=== PATIENT | female | born 1955 | race Caucasian/White ===

== ENCOUNTER 2020-10-07 08:43 | Inpatient (IN) | payer MEDICARE, MEDICAID ==
[~2020-10-07] VITALS: Ht 170.2 cm; Wt 93.0 kg
[2020-10-07] VITALS (40 sets, daily range): BP systolic 90–125; BP diastolic 36–55
[~2020-10-07 08:43] MED LIST: LEVOXYL; RISP3TAB44
[2020-10-07] MEDS ORDERED: DEXTROSE (50%) 50ML SYRG IV PRN (09:00)
[2020-10-07] MEDS ORDERED: INSULIN LANTUS (GLARGINE) 1 /0.01ml (100units/ml) SC ONE (09:00)
[2020-10-07] MEDS ORDERED: InsuLIN R (HUMAN) 100 UNITS in SODIUM CHL 0.9% 99 ML IV SCH ×3 (09:00→16:45)
[2020-10-07] MEDS: ACCU-CHEK COMFORT CURVE STRIP VI SCH ×10 (09:29→22:47)
[2020-10-07] MEDS: SODIUM CHLORIDE 0.9% 1,000 ML IV SCH ×2 (09:30→11:47)
[2020-10-07 09:51] LABS: Hemoglobin 9.4 g/dL (12.2-16.2); Platelet Count (auto) 152 10^3/uL (140-450)
[2020-10-07 09:53] LABS: Hematocrit 34.7 % (36.0-46.0); Mean Corpuscular Hemoglobin 21.3 pg (28.0-32.0); Mean Corpuscular Hgb Conc. 27.2 g/dL (32.0-36.0); Mean Corpuscular Volume 78.2 fL (80.0-100.0); Red Blood Cells 4.43 10^6/uL (4.0-5.20); Red Cell Distribution Width 23.9 % (11.8-14.3); White Blood Cell 17.3 10^3/uL (4.4-10.8)
[2020-10-07 09:57] LABS: Basophils % (manual) 0 (0.0-2.0); Blast Cells 0; Eosinophils % (manual) 0 (0-7); Myelocytes % 0; Promyelocytes % 0; Reactive Lymphocytes 0
[2020-10-07] MEDS ORDERED: ETOMIDATE (2MG/ML) 20ML VIAL IV ONE ×2 (10:09→10:15)
[2020-10-07] MEDS ORDERED: MIDAZOLAM DRIP 50 mg/50mL 50 ML IV ONE (10:10)
[2020-10-07] MEDS ORDERED: SUCCINYLCHOLINE CHLORIDE 20 MG/ML 10ML VIAL IV ONE ×2 (10:11→10:15)
[2020-10-07 10:12] LABS: BUN/Creatinine Ratio 22.1; Calcium 9.4 mg/dL (8.5-10.1); Magnesium 2.6 mg/dL (1.6-2.6); Potassium 4.7 mmol/L (3.5-5.1)
[2020-10-07 10:14] LABS: Urine Bacteria FEW /hpf (None Seen); Urine Blood 1+ /uL (Negative); Urine Specific Gravity 1.019 (1.001-1.035); Urine WBC 2 /hpf (0 - 5)
[2020-10-07 10:21] LABS: Phosphorus 7.4 mg/dL (2.5-4.90)
[2020-10-07] MEDS: MIDAZOLAM DRIP 50 mg/50mL 50 ML IV SCH ×2 (10:25→20:15)
[2020-10-07] MEDS ORDERED: PROPOFOL 100 ML IV ONE (10:50)
[2020-10-07] MEDS ORDERED: PROPOFOL 100 ML IV SCH (11:00)
[2020-10-07] MEDS ORDERED: SODIUM BICARBONATE 50ML VIAL 150 ML in SOD CHL 0.45% 1,000 ML IV ONE (11:00)
[2020-10-07 11:04] LABS: Band Neutrophils % (manual) 12; Lymphocytes % (manual) 2 (10.0-50.0); Metamyelocytes % 5; Monocytes % (manual) 7 (0-12)
[2020-10-07] MEDS ORDERED: AZITHROMYCIN 500MG/ 250ML 250 ML IV ONE (11:15)
[2020-10-07] MEDS ORDERED: cefTRIAXone 1GM/50ML D5W 50 ML IV ONE (11:15)
[2020-10-07] MEDS ORDERED: MORPHINE SULF INJ 2 MG/ML SYRINGE 1ML IV PRN (11:45)
[2020-10-07] MEDS ORDERED: NITROGLYCERIN 0.4 MG SL TAB SL PRN (11:45)
[2020-10-07] MEDS: NOREPINEPHRINE 8 MG/250ML KIT 250 ML IV SCH (11:45)
[2020-10-07 12:06] LABS: Lactic Acid w/Reflex 4.1 mmol/L (0.4-2.0)
[2020-10-07] MEDS ORDERED: SODIUM CHLORIDE 0.9% 1,000 ML IV SCH ×2 (13:00→15:00)
[2020-10-07] MEDS: SOD CHL 0.45% WITH 20MEQ KCL 1,000 ML IV SCH ×2 (13:23→18:34)
[2020-10-07] MEDS: PROPOFOL 100 ML IV SCH (13:31)
[2020-10-07] MEDS: fentaNYL Drip 2500mCg/250mlNS 250 ML IV SCH (13:32)
[2020-10-07] MEDS ORDERED: InsuLIN REG 1unit/0.01ml Soln (100units/ml) IV ONE (14:00)
[2020-10-07] MEDS ORDERED: PHENYLEPHRINE IV 0 ML IV ONE (14:58)
[2020-10-07] MEDS: PHENYLEPHRINE IV 250 ML IV SCH ×2 (15:00→23:20)
[2020-10-07 16:35] LABS: Calcium 7.8 mg/dL (8.5-10.1); Potassium 4.3 mmol/L (3.5-5.1)
[2020-10-07 16:55] LABS: BUN/Creatinine Ratio 23.6
[2020-10-07] MEDS: InsuLIN R (HUMAN) 100 UNITS in SODIUM CHL 0.9% 99 ML IV SCH (18:33)
[2020-10-07 21:34] LABS: BUN/Creatinine Ratio 22.7; Calcium 8.1 mg/dL (8.5-10.1); Potassium 3.6 mmol/L (3.5-5.1)
[2020-10-08] VITALS (109 sets, daily range): BP systolic 91–112; BP diastolic 34–66
[2020-10-08] MEDS: SOD CHL 0.45% WITH 20MEQ KCL 1,000 ML IV SCH ×4 (00:40→21:58)
[2020-10-08] MEDS: ACCU-CHEK COMFORT CURVE STRIP VI SCH ×16 (01:24→22:19)
[2020-10-08 04:19] LABS: Calcium 8.2 mg/dL (8.5-10.1); Potassium 3.5 mmol/L (3.5-5.1)
[2020-10-08 04:22] LABS: BUN/Creatinine Ratio 25.9
[2020-10-08] MEDS: MIDAZOLAM DRIP 50 mg/50mL 50 ML IV SCH ×2 (06:07→09:27)
[2020-10-08] MEDS: PHENYLEPHRINE IV 250 ML IV SCH ×2 (07:40→15:01)
[2020-10-08] MEDS: levoFLOXacin 500MG 100 ML IV SCH (09:14)
[2020-10-08] MEDS: PANTOPRAZOLE 40 MG/10 ML VIAL INJ IV SCH (09:14)
[2020-10-08] MEDS: ENOXAPARIN SOD 40 MG/0.4 ML SYRINGE SC SCH (09:14)
[2020-10-08] MEDS: INSULIN LANTUS (GLARGINE) 1 /0.01ml (100units/ml) SC SCH (09:15)
[2020-10-08] MEDS: fentaNYL Drip 2500mCg/250mlNS 250 ML IV SCH (09:23)
[2020-10-08] MEDS: PROPOFOL 100 ML IV SCH (09:26)
[2020-10-08] MEDS: NOREPINEPHRINE 8 MG/250ML KIT 250 ML IV SCH (09:27)
[2020-10-08] MEDS ORDERED: ENOXAPARIN SOD 40 MG/0.4 ML SYRINGE SC SCH (10:00)
[2020-10-08 12:52] LABS: BUN/Creatinine Ratio 27.2; Calcium 8.6 mg/dL (8.5-10.1); Potassium 3.5 mmol/L (3.5-5.1)
[2020-10-08] MEDS: InsuLIN R (HUMAN) 100 UNITS in SODIUM CHL 0.9% 99 ML IV SCH (16:11)
[2020-10-08 16:42] LABS: % Iron Saturation 5.8 % (15-50)
[2020-10-08 18:31] LABS: BUN/Creatinine Ratio 28.2; Calcium 8.5 mg/dL (8.5-10.1); Magnesium 1.8 mg/dL (1.6-2.6); Potassium 3.5 mmol/L (3.5-5.1)
[2020-10-08] MEDS ORDERED: EMPA1TAB PO (18:46)
[2020-10-08] MEDS ORDERED: FURO20TA3 PO (18:46)
[2020-10-08] MEDS ORDERED: PANT40PA PO (18:46)
[2020-10-08] MEDS ORDERED: LEVO150T10 PO (18:46)
[2020-10-08] MEDS ORDERED: RISP3TAB44 PO (18:46)
[2020-10-08] MEDS ORDERED: INSU70IN3 SC (18:46)
[2020-10-08] MEDS ORDERED: POTA1TAB61 PO (18:46)
[2020-10-08] MEDS ORDERED: GABA300C10 PO (18:46)
[2020-10-08 19:35] LABS: Amphetamine Screen, Urine NEGATIVE (NEGATIVE); Barbiturate Scree,Urine NEGATIVE (NEGATIVE); Benzodiazephine Screen, Urine NEGATIVE (NEGATIVE); Cannabinoid Screen, Urine NEGATIVE (NEGATIVE); Cocaine Screen, Urine NEGATIVE (NEGATIVE); Opiate Scree,Urine NEGATIVE (NEGATIVE); Phencyclidine Screen, Urine NEGATIVE (NEGATIVE)
[2020-10-09] VITALS (90 sets, daily range): BP systolic 93–126; BP diastolic 52–73
[2020-10-09] MEDS: ACCU-CHEK COMFORT CURVE STRIP VI SCH ×10 (01:46→14:39)
[2020-10-09] MEDS: MIDAZOLAM DRIP 50 mg/50mL 50 ML IV SCH (01:46)
[2020-10-09] MEDS: SOD CHL 0.45% WITH 20MEQ KCL 1,000 ML IV SCH ×4 (03:35→21:13)
[2020-10-09 04:51] LABS: Magnesium 1.7 mg/dL (1.6-2.6); Potassium 3.3 mmol/L (3.5-5.1)
[2020-10-09 04:59] LABS: Albumin 2.4 g/dL (3.4-5.0); Bilirubin, Total 0.9 mg/dL (0.2-1.0); Calcium 8.5 mg/dL (8.5-10.1); Total Protein 6.8 g/dL (6.4-8.2)
[2020-10-09 06:08] LABS: Basophils # (auto) 0 10 ^3/uL (0-0.2); Eosinophils # (auto) 0 10 ^3/uL (0-0.8); Hematocrit 23.4 % (36.0-46.0); Lymphocytes # (auto) 0.6 10 ^3/uL (0.4-5.4); Mean Corpuscular Volume 66.7 fL (80.0-100.0); Monocytes # (auto) 0.6 10 ^3/uL (0-1.3); Neutrophils # (auto) 3.3 10 ^3/uL (1.6-8.6); White Blood Cell 4.5 10^3/uL (4.4-10.8)
[2020-10-09 06:10] LABS: Basophils % (auto) 0.2 % (0.0-2.0); Eosinophils % (auto) 0.4 % (0.0-7.0); Hemoglobin 7.6 g/dL (12.2-16.2); Lymphocytes % (auto) 13.6 % (10.0-50.0); Mean Corpuscular Hemoglobin 21.7 pg (28.0-32.0); Mean Corpuscular Hgb Conc. 32.6 g/dL (32.0-36.0); Monocytes % (auto) 12.5 % (0.0-12.0); Neutrophils % (auto) 73.3 % (37.0-80.0); Nucleated Red Blood Cells % 0.1 %
[2020-10-09 07:19] LABS: Platelet Count (auto) 42 10^3/uL (140-450)
[2020-10-09] MEDS: InsuLIN R (HUMAN) 100 UNITS in SODIUM CHL 0.9% 99 ML IV SCH (09:48)
[2020-10-09] MEDS: ENOXAPARIN SOD 40 MG/0.4 ML SYRINGE SC SCH (10:00)
[2020-10-09] MEDS: PANTOPRAZOLE 40 MG/10 ML VIAL INJ IV SCH (10:23)
[2020-10-09] MEDS: levoFLOXacin 500MG 100 ML IV SCH (10:23)
[2020-10-09] MEDS: INSULIN LANTUS (GLARGINE) 1 /0.01ml (100units/ml) SC SCH (10:25)
[2020-10-09] MEDS ORDERED: DEXTROSE (50%) 50ML SYRG IV PRN (11:00)
[2020-10-09] MEDS: InsuLIN REG 1unit/0.01ml Soln (100units/ml) SC SCH ×7 (11:31→21:28)
[2020-10-09] MEDS ORDERED: ACCU-CHEK COMFORT CURVE STRIP VI SCH (12:00)
[2020-10-09] MEDS ORDERED: POTASSIUM EFFERVESENT TAB 25 MEQ GT ONE (12:30)
[2020-10-09] MEDS ORDERED: MAGNESIUM SULFATE 1GM/100ML 100 ML IV ONE (12:30)
[2020-10-10] VITALS (38 sets, daily range): BP systolic 81–127; BP diastolic 42–84
[2020-10-10] MEDS: InsuLIN REG 1unit/0.01ml Soln (100units/ml) SC SCH ×6 (00:38→20:12)
[2020-10-10 04:57] LABS: Basophils # (auto) 0 10 ^3/uL (0-0.2); Eosinophils # (auto) 0 10 ^3/uL (0-0.8); Lymphocytes # (auto) 0.3 10 ^3/uL (0.4-5.4); Monocytes # (auto) 0.2 10 ^3/uL (0-1.3); Platelet Count (auto) 26 10^3/uL (140-450)
[2020-10-10 04:59] LABS: Basophils % (auto) 0.2 % (0.0-2.0); Eosinophils % (auto) 0.6 % (0.0-7.0); Hematocrit 20.2 % (36.0-46.0); Lymphocytes % (auto) 10.6 % (10.0-50.0); Mean Corpuscular Hemoglobin 21.5 pg (28.0-32.0); Mean Corpuscular Volume 65.2 fL (80.0-100.0); Neutrophils % (auto) 80.6 % (37.0-80.0); Nucleated Red Blood Cells % 0.1 %; Red Blood Cells 3.09 10^6/uL (4.0-5.20); White Blood Cell 2.5 10^3/uL (4.4-10.8)
[2020-10-10 05:03] LABS: Red Cell Distribution Width 23.1 % (11.8-14.3)
[2020-10-10 05:05] LABS: Hemoglobin 6.7 g/dL (12.2-16.2)
[2020-10-10 05:17] LABS: BUN/Creatinine Ratio 21.3; Magnesium 1.8 mg/dL (1.6-2.6); Potassium 3.3 mmol/L (3.5-5.1)
[2020-10-10] MEDS: SOD CHL 0.45% WITH 20MEQ KCL 1,000 ML IV SCH ×3 (06:24→20:23)
[2020-10-10] MEDS ORDERED: ACETAMINOPHEN 650 mg PER 20.3 mL UD GT PRN (07:00)
[2020-10-10] MEDS: ENOXAPARIN SOD 40 MG/0.4 ML SYRINGE SC SCH (10:00)
[2020-10-10] MEDS: levoFLOXacin 500MG 100 ML IV SCH (10:15)
[2020-10-10] MEDS: PANTOPRAZOLE 40 MG/10 ML VIAL INJ IV SCH (10:15)
[2020-10-10] MEDS: INSULIN LANTUS (GLARGINE) 1 /0.01ml (100units/ml) SC SCH ×2 (10:21→22:19)
[2020-10-10] MEDS: ACETAMINOPHEN 650 mg PER 20.3 mL UD GT PRN (12:00)
[2020-10-10] MEDS ORDERED: POTASSIUM EFFERVESENT TAB 25 MEQ GT ONE (12:15)
[2020-10-10] MEDS ORDERED: LORazepam 2MG/ML-1ML VIAL IV ONE (14:45)
[2020-10-10] MEDS ORDERED: levoFLOXacin 250MG 50 ML IV ONE (14:45)
[2020-10-10] MEDS ORDERED: LORazepam 2MG/ML-1ML VIAL IV PRN (15:00)
[2020-10-10] MEDS ORDERED: fentaNYL Drip 2500mCg/250mlNS 250 ML IV ONE (15:04)
[2020-10-10] MEDS: fentaNYL Drip 2500mCg/250mlNS 250 ML IV SCH (15:20)
[2020-10-10] MEDS: PROPOFOL 100 ML IV SCH (15:45)
[2020-10-10] MEDS: MIDAZOLAM DRIP 50 mg/50mL 50 ML IV SCH ×2 (15:50→18:15)
[2020-10-10] MEDS ORDERED: VANCOMYCIN PER PHARMACY 0 MG IV SCH (16:00)
[2020-10-10] MEDS ORDERED: ACETAMINOPHEN IV 1000 MG/100ML (10MG/ML) IV PRN (16:30)
[2020-10-10] MEDS ORDERED: VANCOMYCIN 1GM/250ML 250 ML IV ONE (17:00)
[2020-10-10] MEDS ORDERED: ACETAMINOPHEN IV 1000 MG/100ML (10MG/ML) IV ONE (17:30)
[2020-10-10] MEDS: VANCOMYCIN 1GM/250ML 250 ML IV SCH (17:42)
[2020-10-10] MEDS: FAMOTIDINE (10MG/ML) 2ML VL IV SCH (21:58)
[2020-10-10] MEDS: NOREPINEPHRINE 8 MG/250ML KIT 250 ML IV SCH (22:22)
[2020-10-11] VITALS (104 sets, daily range): BP systolic 76–132; BP diastolic 39–103
[2020-10-11] MEDS: InsuLIN REG 1unit/0.01ml Soln (100units/ml) SC SCH ×6 (00:22→20:21)
[2020-10-11] MEDS: ACETAMINOPHEN 650 mg PER 20.3 mL UD GT PRN (02:45)
[2020-10-11] MEDS: MIDAZOLAM DRIP 50 mg/50mL 50 ML IV SCH ×2 (02:57→22:40)
[2020-10-11] MEDS: VANCOMYCIN 1GM/250ML 250 ML IV SCH ×3 (04:15→23:50)
[2020-10-11 04:21] LABS: Basophils # (auto) 0 10 ^3/uL (0-0.2); Eosinophils # (auto) 0 10 ^3/uL (0-0.8); Lymphocytes # (auto) 0.2 10 ^3/uL (0.4-5.4); Mean Corpuscular Hemoglobin 23.1 pg (28.0-32.0); Monocytes # (auto) 0.2 10 ^3/uL (0-1.3); Nucleated Red Blood Cells % 0.1 %; Platelet Count (auto) 26 10^3/uL (140-450); White Blood Cell 3.3 10^3/uL (4.4-10.8)
[2020-10-11 04:24] LABS: Basophils % (auto) 0.2 % (0.0-2.0); Eosinophils % (auto) 0.8 % (0.0-7.0); Lymphocytes % (auto) 5.6 % (10.0-50.0); Mean Corpuscular Hgb Conc. 33.3 g/dL (32.0-36.0); Mean Corpuscular Volume 69.5 fL (80.0-100.0); Neutrophils # (auto) 2.8 10 ^3/uL (1.6-8.6); Neutrophils % (auto) 86.4 % (37.0-80.0); Red Blood Cells 3.45 10^6/uL (4.0-5.20)
[2020-10-11 04:29] LABS: INR 1.24 (0.9-1.15)
[2020-10-11 04:50] LABS: Albumin 2.3 g/dL (3.4-5.0); BUN/Creatinine Ratio 23.2; Calcium 8.1 mg/dL (8.5-10.1); Magnesium 1.8 mg/dL (1.6-2.6); Potassium 3.6 mmol/L (3.5-5.1)
[2020-10-11 04:52] LABS: Bilirubin, Total 3.3 mg/dL (0.2-1.0); Total Protein 6.6 g/dL (6.4-8.2)
[2020-10-11] MEDS ORDERED: IOHEXOL 300 MG/ML 100ML BOTTLE IJ ONE (09:19)
[2020-10-11] MEDS ORDERED: levoFLOXacin 750MG 150 ML IV SCH (10:00)
[2020-10-11] MEDS: ENOXAPARIN SOD 40 MG/0.4 ML SYRINGE SC SCH (10:00)
[2020-10-11] MEDS: FAMOTIDINE (10MG/ML) 2ML VL IV SCH ×2 (10:22→22:05)
[2020-10-11] MEDS: NOREPINEPHRINE 8 MG/250ML KIT 250 ML IV SCH ×2 (10:39→23:29)
[2020-10-11] MEDS: SOD CHL 0.45% WITH 20MEQ KCL 1,000 ML IV SCH ×2 (12:17→22:46)
[2020-10-11] MEDS: PIPERACILLIN-TAZOB 3.375GM 100 ML IV SCH ×2 (12:25→17:50)
[2020-10-11] MEDS ORDERED: POTASSIUM EFFERVESENT TAB 25 MEQ GT ONE (12:30)
[2020-10-11] MEDS ORDERED: MAGNESIUM SULFATE 1GM/100ML 100 ML IV ONE (12:30)
[2020-10-11] MEDS ORDERED: LACTULOSE 20Gm/30ML SOLN PO PRN (12:45)
[2020-10-11] MEDS: fentaNYL Drip 2500mCg/250mlNS 250 ML IV SCH (15:00)
[2020-10-11] MEDS: PROPOFOL 100 ML IV SCH (15:45)
[2020-10-11] MEDS: LACTULOSE 20Gm/30ML SOLN PO SCH (17:30)
[2020-10-11] MEDS: INSULIN LANTUS (GLARGINE) 1 /0.01ml (100units/ml) SC SCH (22:09)
[2020-10-12] VITALS (103 sets, daily range): BP systolic 96–120; BP diastolic 51–85
[2020-10-12] MEDS: InsuLIN REG 1unit/0.01ml Soln (100units/ml) SC SCH ×6 (00:11→20:06)
[2020-10-12] MEDS: PIPERACILLIN-TAZOB 3.375GM 100 ML IV SCH ×3 (00:12→12:49)
[2020-10-12 04:04] LABS: Basophils # (auto) 0 10 ^3/uL (0-0.2); Eosinophils # (auto) 0.1 10 ^3/uL (0-0.8); Hemoglobin 8.7 g/dL (12.2-16.2); Lymphocytes # (auto) 0.6 10 ^3/uL (0.4-5.4); Mean Corpuscular Volume 67.8 fL (80.0-100.0); Monocytes # (auto) 0.8 10 ^3/uL (0-1.3); Neutrophils # (auto) 5.4 10 ^3/uL (1.6-8.6); Neutrophils % (auto) 78.1 % (37.0-80.0); Nucleated Red Blood Cells % 0.1 %; White Blood Cell 6.9 10^3/uL (4.4-10.8)
[2020-10-12 04:07] LABS: Basophils % (auto) 0.3 % (0.0-2.0); Eosinophils % (auto) 1.5 % (0.0-7.0); Hematocrit 26.3 % (36.0-46.0); Lymphocytes % (auto) 8.4 % (10.0-50.0); Mean Corpuscular Hemoglobin 22.4 pg (28.0-32.0); Monocytes % (auto) 11.7 % (0.0-12.0); Platelet Count (auto) 40 10^3/uL (140-450); Red Blood Cells 3.88 10^6/uL (4.0-5.20)
[2020-10-12 04:14] LABS: Red Cell Distribution Width 25.2 % (11.8-14.3)
[2020-10-12 04:22] LABS: Potassium 3.4 mmol/L (3.5-5.1)
[2020-10-12 04:24] LABS: INR 1.25 (0.9-1.15)
[2020-10-12 04:29] LABS: Bilirubin, Total 1.7 mg/dL (0.2-1.0); Magnesium 1.7 mg/dL (1.6-2.6)
[2020-10-12] MEDS ORDERED: POTASSIUM CHL 20MEQ/100ML 100 ML IV ONE (06:00)
[2020-10-12] MEDS: SOD CHL 0.45% WITH 20MEQ KCL 1,000 ML IV SCH ×2 (09:16→13:41)
[2020-10-12] MEDS: LACTULOSE 20Gm/30ML SOLN PO SCH ×2 (10:38→22:06)
[2020-10-12] MEDS: ENOXAPARIN SOD 40 MG/0.4 ML SYRINGE SC SCH (10:39)
[2020-10-12] MEDS: FAMOTIDINE (10MG/ML) 2ML VL IV SCH ×2 (10:39→22:06)
[2020-10-12] MEDS: VANCOMYCIN 1GM/250ML 250 ML IV SCH (10:47)
[2020-10-12] MEDS ORDERED: ERTAPENEM SOD INJ 1 GM in SODIUM CHL 0.9% 50 ML IV ONE (13:30)
[2020-10-12] MEDS ORDERED: MAGNESIUM SULFATE 1GM/100ML 100 ML IV ONE (13:30)
[2020-10-12] MEDS: INSULIN LANTUS (GLARGINE) 1 /0.01ml (100units/ml) SC SCH (22:00)
[2020-10-13] VITALS (62 sets, daily range): BP systolic 86–106; BP diastolic 41–63
[2020-10-13] MEDS: InsuLIN REG 1unit/0.01ml Soln (100units/ml) SC SCH ×6 (00:17→20:24)
[2020-10-13] MEDS: SOD CHL 0.45% WITH 20MEQ KCL 1,000 ML IV SCH ×2 (01:01→18:06)
[2020-10-13 04:54] LABS: Basophils # (auto) 0 10 ^3/uL (0-0.2); Eosinophils # (auto) 0.1 10 ^3/uL (0-0.8); Hematocrit 22.3 % (36.0-46.0); Hemoglobin 7.5 g/dL (12.2-16.2); Lymphocytes # (auto) 0.5 10 ^3/uL (0.4-5.4); Mean Corpuscular Hgb Conc. 33.6 g/dL (32.0-36.0); Monocytes # (auto) 0.5 10 ^3/uL (0-1.3)
[2020-10-13 04:56] LABS: Basophils % (auto) 0.3 % (0.0-2.0); Eosinophils % (auto) 1.7 % (0.0-7.0); Lymphocytes % (auto) 13.5 % (10.0-50.0); Mean Corpuscular Hemoglobin 22.7 pg (28.0-32.0); Mean Corpuscular Volume 67.7 fL (80.0-100.0); Monocytes % (auto) 13.1 % (0.0-12.0); Neutrophils # (auto) 2.8 10 ^3/uL (1.6-8.6); Neutrophils % (auto) 71.4 % (37.0-80.0); Nucleated Red Blood Cells % 0.1 %; Platelet Count (auto) 35 10^3/uL (140-450); Red Blood Cells 3.29 10^6/uL (4.0-5.20); White Blood Cell 3.9 10^3/uL (4.4-10.8)
[2020-10-13 05:19] LABS: Potassium 3.3 mmol/L (3.5-5.1); Red Cell Distribution Width 25.2 % (11.8-14.3)
[2020-10-13 05:32] LABS: BUN/Creatinine Ratio 10.9; Bilirubin, Total 1.3 mg/dL (0.2-1.0); Calcium 7.8 mg/dL (8.5-10.1); Magnesium 1.8 mg/dL (1.6-2.6); Total Protein 5.9 g/dL (6.4-8.2)
[2020-10-13] MEDS ORDERED: POTASSIUM CHL 20MEQ/100ML 100 ML IV ONE (07:00)
[2020-10-13] MEDS: FAMOTIDINE (10MG/ML) 2ML VL IV SCH ×2 (10:56→22:00)
[2020-10-13] MEDS: LACTULOSE 20Gm/30ML SOLN PO SCH ×2 (10:56→22:00)
[2020-10-13] MEDS: ERTAPENEM SOD INJ 1 GM in SODIUM CHL 0.9% 50 ML IV SCH (10:56)
[2020-10-13] MEDS: ENOXAPARIN SOD 40 MG/0.4 ML SYRINGE SC SCH (10:57)
[2020-10-13] MEDS ORDERED: MAGNESIUM SULFATE 1GM/100ML 100 ML IV ONE (11:15)
[2020-10-13] MEDS: INSULIN LANTUS (GLARGINE) 1 /0.01ml (100units/ml) SC SCH (22:00)
[2020-10-14] VITALS (67 sets, daily range): BP systolic 82–103; BP diastolic 45–59
[2020-10-14] MEDS: InsuLIN REG 1unit/0.01ml Soln (100units/ml) SC SCH ×7 (00:16→23:50)
[2020-10-14 04:30] LABS: Basophils # (auto) 0 10 ^3/uL (0-0.2); Basophils % (auto) 0.2 % (0.0-2.0); Eosinophils # (auto) 0.1 10 ^3/uL (0-0.8); Lymphocytes # (auto) 0.4 10 ^3/uL (0.4-5.4); Lymphocytes % (auto) 15.4 % (10.0-50.0); Mean Corpuscular Volume 68.6 fL (80.0-100.0); Monocytes # (auto) 0.4 10 ^3/uL (0-1.3); Nucleated Red Blood Cells % 0.1 %; White Blood Cell 2.8 10^3/uL (4.4-10.8)
[2020-10-14 04:33] LABS: Eosinophils % (auto) 2.7 % (0.0-7.0); Hematocrit 20.8 % (36.0-46.0); Mean Corpuscular Hemoglobin 22.4 pg (28.0-32.0); Mean Corpuscular Hgb Conc. 32.6 g/dL (32.0-36.0); Monocytes % (auto) 13.2 % (0.0-12.0); Neutrophils % (auto) 68.5 % (37.0-80.0); Platelet Count (auto) 39 10^3/uL (140-450); Red Blood Cells 3.03 10^6/uL (4.0-5.20)
[2020-10-14 04:39] LABS: Red Cell Distribution Width 25.2 % (11.8-14.3)
[2020-10-14 04:40] LABS: Magnesium 1.8 mg/dL (1.6-2.6); Potassium 3.3 mmol/L (3.5-5.1)
[2020-10-14 04:41] LABS: Hemoglobin 6.8 g/dL (12.2-16.2)
[2020-10-14] MEDS ORDERED: POTASSIUM CHL 20MEQ/100ML 100 ML IV ONE (05:45)
[2020-10-14] MEDS: LACTULOSE 20Gm/30ML SOLN PO SCH ×2 (09:41→21:52)
[2020-10-14] MEDS: ERTAPENEM SOD INJ 1 GM in SODIUM CHL 0.9% 50 ML IV SCH (09:41)
[2020-10-14] MEDS: FAMOTIDINE (10MG/ML) 2ML VL IV SCH ×2 (09:41→21:53)
[2020-10-14] MEDS: SOD CHL 0.45% WITH 20MEQ KCL 1,000 ML IV SCH ×2 (09:42→21:53)
[2020-10-14] MEDS: ENOXAPARIN SOD 40 MG/0.4 ML SYRINGE SC SCH (10:00)
[2020-10-14] MEDS: NOREPINEPHRINE 8 MG/250ML KIT 250 ML IV SCH (19:30)
[2020-10-14] MEDS: INSULIN LANTUS (GLARGINE) 1 /0.01ml (100units/ml) SC SCH (21:58)
[2020-10-15] VITALS (91 sets, daily range): BP systolic 83–106; BP diastolic 41–66
[2020-10-15] MEDS: InsuLIN REG 1unit/0.01ml Soln (100units/ml) SC SCH ×4 (04:00→23:38)
[2020-10-15 04:04] LABS: INR 1.22 (0.9-1.15)
[2020-10-15 04:06] LABS: Basophils # (auto) 0 10 ^3/uL (0-0.2); Eosinophils # (auto) 0.2 10 ^3/uL (0-0.8); Hematocrit 26.9 % (36.0-46.0); Hemoglobin 8.7 g/dL (12.2-16.2); Lymphocytes # (auto) 0.8 10 ^3/uL (0.4-5.4); Mean Corpuscular Hgb Conc. 32.4 g/dL (32.0-36.0); Monocytes # (auto) 0.7 10 ^3/uL (0-1.3); Neutrophils # (auto) 3.5 10 ^3/uL (1.6-8.6); Red Blood Cells 3.79 10^6/uL (4.0-5.20)
[2020-10-15 04:08] LABS: Basophils % (auto) 0.2 % (0.0-2.0); Lymphocytes % (auto) 16.1 % (10.0-50.0); Monocytes % (auto) 12.7 % (0.0-12.0); Platelet Count (auto) 73 10^3/uL (140-450); White Blood Cell 5.2 10^3/uL (4.4-10.8)
[2020-10-15 04:12] LABS: Red Cell Distribution Width 26.6 % (11.8-14.3)
[2020-10-15 04:15] LABS: Potassium 3.4 mmol/L (3.5-5.1)
[2020-10-15 04:21] LABS: Albumin 2.1 g/dL (3.4-5.0); BUN/Creatinine Ratio 10.4; Bilirubin, Total 1.3 mg/dL (0.2-1.0); Calcium 8.1 mg/dL (8.5-10.1); Total Protein 6.3 g/dL (6.4-8.2)
[2020-10-15] MEDS: LACTULOSE 20Gm/30ML SOLN PO SCH ×2 (07:37→22:14)
[2020-10-15] MEDS: ENOXAPARIN SOD 40 MG/0.4 ML SYRINGE SC SCH (10:29)
[2020-10-15] MEDS: ERTAPENEM SOD INJ 1 GM in SODIUM CHL 0.9% 50 ML IV SCH (10:29)
[2020-10-15] MEDS: FAMOTIDINE (10MG/ML) 2ML VL IV SCH ×2 (10:29→22:14)
[2020-10-15] MEDS ORDERED: DEXTROSE (50%) 50ML SYRG IV PRN (12:15)
[2020-10-15] MEDS: POTASSIUM CHL 20MEQ/100ML 100 ML IV SCH ×2 (13:30→15:31)
[2020-10-15] MEDS: SOD CHL 0.45% WITH 20MEQ KCL 1,000 ML IV SCH (13:30)
[2020-10-15] MEDS: ACCU-CHEK COMFORT CURVE STRIP VI SCH ×2 (18:09→23:39)
[2020-10-15] MEDS: NOREPINEPHRINE 8 MG/250ML KIT 250 ML IV SCH (22:15)
[2020-10-15] MEDS: INSULIN LANTUS (GLARGINE) 1 /0.01ml (100units/ml) SC SCH (22:26)
[2020-10-16] VITALS (92 sets, daily range): BP systolic 82–111; BP diastolic 41–61
[2020-10-16 03:54] LABS: Hematocrit 25.6 % (36.0-46.0); Hemoglobin 8.4 g/dL (12.2-16.2)
[2020-10-16] MEDS: ACCU-CHEK COMFORT CURVE STRIP VI SCH ×4 (05:31→23:54)
[2020-10-16] MEDS: SOD CHL 0.45% WITH 20MEQ KCL 1,000 ML IV SCH ×3 (05:31→22:25)
[2020-10-16] MEDS: InsuLIN REG 1unit/0.01ml Soln (100units/ml) SC SCH ×4 (05:45→23:56)
[2020-10-16] MEDS: LACTULOSE 20Gm/30ML SOLN PO SCH ×2 (10:40→22:20)
[2020-10-16] MEDS: ENOXAPARIN SOD 40 MG/0.4 ML SYRINGE SC SCH (10:40)
[2020-10-16] MEDS: FAMOTIDINE (10MG/ML) 2ML VL IV SCH ×2 (10:40→22:20)
[2020-10-16] MEDS: ERTAPENEM SOD INJ 1 GM in SODIUM CHL 0.9% 50 ML IV SCH (10:40)
[2020-10-16] MEDS: NOREPINEPHRINE 8 MG/250ML KIT 250 ML IV SCH (11:30)
[2020-10-16] MEDS: MIDODRINE HCL 10 MG TAB PO SCH ×2 (11:43→20:33)
[2020-10-16] MEDS ORDERED: LEVOTHYROXINE SODIUM 100 MCG/5 ML INJ IV ONE (12:00)
[2020-10-16] MEDS ORDERED: SODIUM CHLORIDE 0.9% 500 ML IV ONE (13:00)
[2020-10-16] MEDS ORDERED: DEXTROSE (50%) 50ML SYRG IV PRN (15:30)
[2020-10-16] MEDS: INSULIN LANTUS (GLARGINE) 1 /0.01ml (100units/ml) SC SCH (22:21)
[2020-10-17] VITALS (70 sets, daily range): BP systolic 75–103; BP diastolic 36–70
[2020-10-17 03:55] LABS: Hemoglobin 8.8 g/dL (12.2-16.2); Platelet Count (auto) 95 10^3/uL (140-450)
[2020-10-17 03:57] LABS: Mean Corpuscular Hemoglobin 23.8 pg (28.0-32.0); Mean Corpuscular Hgb Conc. 33.9 g/dL (32.0-36.0); Mean Corpuscular Volume 70.3 fL (80.0-100.0); Red Blood Cells 3.69 10^6/uL (4.0-5.20); White Blood Cell 5.4 10^3/uL (4.4-10.8)
[2020-10-17 04:03] LABS: Basophils % (manual) 0 (0.0-2.0); Blast Cells 0; Metamyelocytes % 0; Promyelocytes % 0; Reactive Lymphocytes 0; Red Cell Distribution Width 26.5 % (11.8-14.3)
[2020-10-17 04:14] LABS: Calcium 8.2 mg/dL (8.5-10.1); Magnesium 1.8 mg/dL (1.6-2.6); Potassium 3.8 mmol/L (3.5-5.1)
[2020-10-17 04:17] LABS: BUN/Creatinine Ratio 9.6; Bilirubin, Total 0.9 mg/dL (0.2-1.0); Total Protein 6.2 g/dL (6.4-8.2)
[2020-10-17] MEDS: MIDODRINE HCL 10 MG TAB PO SCH ×3 (04:44→21:06)
[2020-10-17] MEDS: ACCU-CHEK COMFORT CURVE STRIP VI SCH ×3 (05:25→17:32)
[2020-10-17] MEDS: InsuLIN REG 1unit/0.01ml Soln (100units/ml) SC SCH ×3 (05:27→17:35)
[2020-10-17 05:40] LABS: INR 1.26 (0.9-1.15)
[2020-10-17 07:31] LABS: Band Neutrophils % (manual) 11; Eosinophils % (manual) 2 (0-7); Lymphocytes % (manual) 10 (10.0-50.0); Monocytes % (manual) 4 (0-12); Myelocytes % 1
[2020-10-17] MEDS ORDERED: LEVOTHYROXINE SODIUM 100 MCG/5 ML INJ IV ONE (12:00)
[2020-10-17] MEDS ORDERED: FLUCONAZOLE 100 MG TAB PO ONE (12:00)
[2020-10-17] MEDS: FAMOTIDINE (10MG/ML) 2ML VL IV SCH ×2 (13:25→21:06)
[2020-10-17] MEDS: ENOXAPARIN SOD 40 MG/0.4 ML SYRINGE SC SCH (13:34)
[2020-10-17] MEDS: LACTULOSE 20Gm/30ML SOLN PO SCH ×2 (13:36→21:06)
[2020-10-17] MEDS: SOD CHL 0.45% WITH 20MEQ KCL 1,000 ML IV SCH ×2 (13:36→17:32)
[2020-10-17] MEDS: NOREPINEPHRINE 8 MG/250ML KIT 250 ML IV SCH (13:37)
[2020-10-17] MEDS: ERTAPENEM SOD INJ 1 GM in SODIUM CHL 0.9% 50 ML IV SCH (14:38)
[2020-10-17] MEDS ORDERED: MAGNESIUM SULFATE 1GM/100ML 100 ML IV ONE (16:45)
[2020-10-17] MEDS ORDERED: FUROSEMIDE 20 MG/2 ML VIAL IV ONE (17:00)
[2020-10-17] MEDS ORDERED: ALBUMIN 25% 100 ML IV ONE (17:00)
[2020-10-17] MEDS: MICONAZOLE NITRATE 2 % VAGINAL CREAM 45 GM PV SCH (21:07)
[2020-10-17] MEDS: INSULIN LANTUS (GLARGINE) 1 /0.01ml (100units/ml) SC SCH (21:22)
[2020-10-18] VITALS (96 sets, daily range): BP systolic 81–111; BP diastolic 40–61
[2020-10-18] MEDS: ACCU-CHEK COMFORT CURVE STRIP VI SCH ×5 (00:07→23:12)
[2020-10-18] MEDS: InsuLIN REG 1unit/0.01ml Soln (100units/ml) SC SCH ×5 (00:08→23:12)
[2020-10-18 04:06] LABS: Magnesium 1.8 mg/dL (1.6-2.6); Potassium 3.6 mmol/L (3.5-5.1)
[2020-10-18] MEDS: SOD CHL 0.45% WITH 20MEQ KCL 1,000 ML IV SCH ×2 (04:07→21:24)
[2020-10-18] MEDS: MIDODRINE HCL 10 MG TAB PO SCH ×3 (04:07→21:04)
[2020-10-18] MEDS ORDERED: LEVOTHYROXINE SODIUM 100 MCG/5 ML INJ IV SCH (10:00)
[2020-10-18] MEDS: LACTULOSE 20Gm/30ML SOLN PO SCH ×2 (10:00→21:05)
[2020-10-18] MEDS: NOREPINEPHRINE 8 MG/250ML KIT 250 ML IV SCH (10:18)
[2020-10-18] MEDS: ENOXAPARIN SOD 40 MG/0.4 ML SYRINGE SC SCH (10:18)
[2020-10-18] MEDS: FAMOTIDINE (10MG/ML) 2ML VL IV SCH ×2 (10:19→21:05)
[2020-10-18] MEDS: LEVOTHYROXINE SODIUM 100 MCG/5 ML INJ IV SCH (10:19)
[2020-10-18] MEDS: ERTAPENEM SOD INJ 1 GM in SODIUM CHL 0.9% 50 ML IV SCH (10:39)
[2020-10-18] MEDS ORDERED: SODIUM CHLORIDE 0.9% 1,000 ML IV ONE (10:45)
[2020-10-18] MEDS: MICONAZOLE NITRATE 2 % VAGINAL CREAM 45 GM PV SCH (21:05)
[2020-10-18] MEDS: risperiDONE 1 MG TAB PO SCH (21:38)
[2020-10-18] MEDS: INSULIN LANTUS (GLARGINE) 1 /0.01ml (100units/ml) SC SCH (21:41)
[2020-10-19] VITALS (95 sets, daily range): BP systolic 83–113; BP diastolic 41–64
[2020-10-19] MEDS: MIDODRINE HCL 10 MG TAB PO SCH ×3 (03:31→20:12)
[2020-10-19 03:53] LABS: Basophils # (auto) 0 10 ^3/uL (0-0.2); Eosinophils # (auto) 0.1 10 ^3/uL (0-0.8); Lymphocytes # (auto) 0.7 10 ^3/uL (0.4-5.4); Monocytes # (auto) 0.2 10 ^3/uL (0-1.3); Neutrophils # (auto) 1.8 10 ^3/uL (1.6-8.6); White Blood Cell 2.7 10^3/uL (4.4-10.8)
[2020-10-19 03:57] LABS: Basophils % (auto) 0.7 % (0.0-2.0); Eosinophils % (auto) 3.2 % (0.0-7.0); Hematocrit 23.4 % (36.0-46.0); Lymphocytes % (auto) 23.9 % (10.0-50.0); Mean Corpuscular Hemoglobin 24.2 pg (28.0-32.0); Monocytes % (auto) 6.7 % (0.0-12.0); Neutrophils % (auto) 65.5 % (37.0-80.0); Platelet Count (auto) 52 10^3/uL (140-450)
[2020-10-19 04:10] LABS: Calcium 7.6 mg/dL (8.5-10.1); Potassium 3.9 mmol/L (3.5-5.1)
[2020-10-19 04:12] LABS: BUN/Creatinine Ratio 10.9
[2020-10-19 04:17] LABS: Red Cell Distribution Width 27.5 % (11.8-14.3)
[2020-10-19] MEDS: ACCU-CHEK COMFORT CURVE STRIP VI SCH ×4 (05:03→23:03)
[2020-10-19] MEDS: InsuLIN REG 1unit/0.01ml Soln (100units/ml) SC SCH ×4 (05:03→23:08)
[2020-10-19] MEDS: FAMOTIDINE (10MG/ML) 2ML VL IV SCH ×2 (09:44→20:13)
[2020-10-19] MEDS: ERTAPENEM SOD INJ 1 GM in SODIUM CHL 0.9% 50 ML IV SCH (09:44)
[2020-10-19] MEDS: LACTULOSE 20Gm/30ML SOLN PO SCH ×3 (09:44→20:02)
[2020-10-19] MEDS: ENOXAPARIN SOD 40 MG/0.4 ML SYRINGE SC SCH (10:00)
[2020-10-19] MEDS: LEVOTHYROXINE SODIUM 100 MCG/5 ML INJ IV SCH (10:09)
[2020-10-19] MEDS: SOD CHL 0.45% WITH 20MEQ KCL 1,000 ML IV SCH (12:21)
[2020-10-19] MEDS: NOREPINEPHRINE 8 MG/250ML KIT 250 ML IV SCH (12:22)
[2020-10-19 14:56] LABS: Urine Bacteria NONE SEEN /hpf (None Seen); Urine Blood 3+ /uL (Negative); Urine WBC 853 /hpf (0 - 5); Urine WBC Clumps PRESENT /hpf (None Seen)
[2020-10-19 18:03] LABS: Hematocrit 24.5 % (36.0-46.0)
[2020-10-19] MEDS: MICONAZOLE NITRATE 2 % VAGINAL CREAM 45 GM PV SCH (20:12)
[2020-10-19] MEDS: risperiDONE 1 MG TAB PO SCH (20:13)
[2020-10-19] MEDS: INSULIN LANTUS (GLARGINE) 1 /0.01ml (100units/ml) SC SCH (20:55)
[2020-10-20] VITALS (92 sets, daily range): BP systolic 83–117; BP diastolic 36–63
[2020-10-20] MEDS: MIDODRINE HCL 10 MG TAB PO SCH ×3 (03:37→20:00)
[2020-10-20 03:55] LABS: Basophils # (auto) 0 10 ^3/uL (0-0.2); Eosinophils # (auto) 0.1 10 ^3/uL (0-0.8); Hemoglobin 7.7 g/dL (12.2-16.2); Lymphocytes # (auto) 0.6 10 ^3/uL (0.4-5.4); Mean Corpuscular Hemoglobin 24.1 pg (28.0-32.0); Monocytes # (auto) 0.1 10 ^3/uL (0-1.3); Neutrophils # (auto) 1.6 10 ^3/uL (1.6-8.6)
[2020-10-20 03:57] LABS: Basophils % (auto) 0.5 % (0.0-2.0); Eosinophils % (auto) 2.7 % (0.0-7.0); Hematocrit 23.3 % (36.0-46.0); Lymphocytes % (auto) 23.4 % (10.0-50.0); Mean Corpuscular Hgb Conc. 33.2 g/dL (32.0-36.0); Mean Corpuscular Volume 72.6 fL (80.0-100.0); Monocytes % (auto) 5.7 % (0.0-12.0); Neutrophils % (auto) 67.7 % (37.0-80.0); Nucleated Red Blood Cells % 0.1 %; Platelet Count (auto) 50 10^3/uL (140-450); Red Blood Cells 3.21 10^6/uL (4.0-5.20); White Blood Cell 2.4 10^3/uL (4.4-10.8)
[2020-10-20 04:08] LABS: Red Cell Distribution Width 27.8 % (11.8-14.3)
[2020-10-20 04:23] LABS: Albumin 2.2 g/dL (3.4-5.0); BUN/Creatinine Ratio 9.4; Calcium 8.2 mg/dL (8.5-10.1); Potassium 3.8 mmol/L (3.5-5.1)
[2020-10-20 04:26] LABS: Bilirubin, Total 0.6 mg/dL (0.2-1.0); Total Protein 6.3 g/dL (6.4-8.2)
[2020-10-20] MEDS: SOD CHL 0.45% WITH 20MEQ KCL 1,000 ML IV SCH ×3 (04:55→21:17)
[2020-10-20] MEDS: InsuLIN REG 1unit/0.01ml Soln (100units/ml) SC SCH ×3 (05:25→18:10)
[2020-10-20] MEDS: ACCU-CHEK COMFORT CURVE STRIP VI SCH ×3 (05:25→18:00)
[2020-10-20] MEDS: NOREPINEPHRINE 8 MG/250ML KIT 250 ML IV SCH ×2 (05:26→21:16)
[2020-10-20] MEDS: FAMOTIDINE (10MG/ML) 2ML VL IV SCH ×2 (09:38→22:00)
[2020-10-20] MEDS: ERTAPENEM SOD INJ 1 GM in SODIUM CHL 0.9% 50 ML IV SCH (09:38)
[2020-10-20] MEDS: LEVOTHYROXINE SODIUM 100 MCG/5 ML INJ IV SCH (09:47)
[2020-10-20] MEDS: LACTULOSE 20Gm/30ML SOLN PO SCH ×2 (09:47→11:33)
[2020-10-20] MEDS: ENOXAPARIN SOD 40 MG/0.4 ML SYRINGE SC SCH (09:47)
[2020-10-20] MEDS: Glucerna Carbsteady SHAKE Vanilla 8oz PO SCH ×2 (12:34→18:00)
[2020-10-20 18:31] LABS: Hematocrit 24.4 % (36.0-46.0)
[2020-10-20] MEDS: INSULIN LANTUS (GLARGINE) 1 /0.01ml (100units/ml) SC SCH (22:00)
[2020-10-20] MEDS: MICONAZOLE NITRATE 2 % VAGINAL CREAM 45 GM PV SCH (22:00)
[2020-10-20] MEDS: risperiDONE 1 MG TAB PO SCH (22:00)
[2020-10-21] VITALS (82 sets, daily range): BP systolic 88–110; BP diastolic 49–71
[2020-10-21] MEDS: ACCU-CHEK COMFORT CURVE STRIP VI SCH ×4 (00:03→17:38)
[2020-10-21] MEDS: InsuLIN REG 1unit/0.01ml Soln (100units/ml) SC SCH ×4 (00:06→17:38)
[2020-10-21 03:44] LABS: Basophils # (auto) 0 10 ^3/uL (0-0.2); Basophils % (auto) 0.6 % (0.0-2.0); Eosinophils # (auto) 0.1 10 ^3/uL (0-0.8); Eosinophils % (auto) 2.2 % (0.0-7.0); Hematocrit 23.1 % (36.0-46.0); Hemoglobin 7.5 g/dL (12.2-16.2); Lymphocytes # (auto) 0.5 10 ^3/uL (0.4-5.4); Lymphocytes % (auto) 20.7 % (10.0-50.0); Mean Corpuscular Hemoglobin 23.8 pg (28.0-32.0); Mean Corpuscular Hgb Conc. 32.5 g/dL (32.0-36.0); Mean Corpuscular Volume 73.4 fL (80.0-100.0); Monocytes # (auto) 0.1 10 ^3/uL (0-1.3); Monocytes % (auto) 4.9 % (0.0-12.0); Neutrophils # (auto) 1.7 10 ^3/uL (1.6-8.6); Neutrophils % (auto) 71.6 % (37.0-80.0); Nucleated Red Blood Cells % 0.2 %; Platelet Count (auto) 50 10^3/uL (140-450); Red Blood Cells 3.15 10^6/uL (4.0-5.20); White Blood Cell 2.4 10^3/uL (4.4-10.8)
[2020-10-21 04:04] LABS: Albumin 2.1 g/dL (3.4-5.0); Calcium 8.4 mg/dL (8.5-10.1); Potassium 3.8 mmol/L (3.5-5.1)
[2020-10-21 04:06] LABS: BUN/Creatinine Ratio 9.5
[2020-10-21 04:08] LABS: Bilirubin, Total 0.7 mg/dL (0.2-1.0); Total Protein 6.4 g/dL (6.4-8.2)
[2020-10-21] MEDS: MIDODRINE HCL 10 MG TAB PO SCH ×3 (04:28→17:40)
[2020-10-21] MEDS: LACTULOSE 20Gm/30ML SOLN PO SCH ×2 (09:01→22:23)
[2020-10-21] MEDS: FAMOTIDINE (10MG/ML) 2ML VL IV SCH ×2 (09:01→22:23)
[2020-10-21] MEDS: Glucerna Carbsteady SHAKE Vanilla 8oz PO SCH ×3 (09:01→18:00)
[2020-10-21] MEDS: ERTAPENEM SOD INJ 1 GM in SODIUM CHL 0.9% 50 ML IV SCH (09:02)
[2020-10-21] MEDS: ENOXAPARIN SOD 40 MG/0.4 ML SYRINGE SC SCH (10:00)
[2020-10-21] MEDS: LEVOTHYROXINE SODIUM 100 MCG/5 ML INJ IV SCH (11:05)
[2020-10-21] MEDS ORDERED: INSULIN LANTUS (GLARGINE) 1 /0.01ml (100units/ml) SC SCH (22:00)
[2020-10-21] MEDS: HYDROCORTISONE SOD SUCC 100 MG/2ML INJ VIAL IV SCH (22:23)
[2020-10-21] MEDS: risperiDONE 1 MG TAB PO SCH (22:23)
[2020-10-21] MEDS: MICONAZOLE NITRATE 2 % VAGINAL CREAM 45 GM PV SCH (22:24)
[2020-10-22] VITALS (87 sets, daily range): BP systolic 84–109; BP diastolic 40–62
[2020-10-22] MEDS: MIDODRINE HCL 10 MG TAB PO SCH ×5 (00:07→23:46)
[2020-10-22] MEDS: ACCU-CHEK COMFORT CURVE STRIP VI SCH ×5 (00:07→23:46)
[2020-10-22] MEDS: InsuLIN REG 1unit/0.01ml Soln (100units/ml) SC SCH ×6 (00:13→23:47)
[2020-10-22 04:20] LABS: Hematocrit 22.7 % (36.0-46.0); Hemoglobin 7.5 g/dL (12.2-16.2)
[2020-10-22 04:34] LABS: Magnesium 1.7 mg/dL (1.6-2.6); Potassium 3.9 mmol/L (3.5-5.1)
[2020-10-22] MEDS: SOD CHL 0.45% WITH 20MEQ KCL 1,000 ML IV SCH (04:40)
[2020-10-22] MEDS: HYDROCORTISONE SOD SUCC 100 MG/2ML INJ VIAL IV SCH ×3 (05:47→22:00)
[2020-10-22] MEDS: Glucerna Carbsteady SHAKE Vanilla 8oz PO SCH ×3 (08:00→18:00)
[2020-10-22] MEDS: FAMOTIDINE (10MG/ML) 2ML VL IV SCH ×2 (10:10→22:00)
[2020-10-22] MEDS: ERTAPENEM SOD INJ 1 GM in SODIUM CHL 0.9% 50 ML IV SCH (10:10)
[2020-10-22] MEDS: ENOXAPARIN SOD 40 MG/0.4 ML SYRINGE SC SCH (10:11)
[2020-10-22] MEDS: LEVOTHYROXINE SODIUM 100 MCG/5 ML INJ IV SCH (10:11)
[2020-10-22] MEDS: LACTULOSE 20Gm/30ML SOLN PO SCH ×2 (10:16→18:00)
[2020-10-22] MEDS ORDERED: MAGNESIUM SULFATE 1GM/100ML 100 ML IV ONE (11:15)
[2020-10-22] MEDS ORDERED: POTASSIUM EFFERVESENT TAB 25 MEQ PO ONE (11:15)
[2020-10-22] MEDS: NOREPINEPHRINE 8 MG/250ML KIT 250 ML IV SCH (11:30)
[2020-10-22] MEDS: SODIUM FERR GLUC 62.5MG/5ML 125 MG in SODIUM CHL 0.9% 100 ML IV SCH (14:29)
[2020-10-22] MEDS ORDERED: InsuLIN REG 1unit/0.01ml Soln (100units/ml) IV ONE (18:15)
[2020-10-22] MEDS: INSULIN LANTUS (GLARGINE) 1 /0.01ml (100units/ml) SC SCH (19:41)
[2020-10-22] MEDS: risperiDONE 1 MG TAB PO SCH ×2 (22:00→23:58)
[2020-10-22] MEDS: MICONAZOLE NITRATE 2 % VAGINAL CREAM 45 GM PV SCH (22:00)
[2020-10-23] VITALS (77 sets, daily range): BP systolic 83–131; BP diastolic 37–72
[2020-10-23] MEDS: InsuLIN REG 1unit/0.01ml Soln (100units/ml) SC SCH ×5 (04:33→20:55)
[2020-10-23] MEDS ORDERED: ATROPINE SULFATE 0.4 MG/1 ML VIAL ONE ×2 (04:44→06:39)
[2020-10-23] MEDS ORDERED: ATROPINE SULFATE 0.4 MG/1 ML VIAL IV ONE (05:00)
[2020-10-23] MEDS: MIDODRINE HCL 10 MG TAB PO SCH ×4 (05:48→21:27)
[2020-10-23] MEDS: HYDROCORTISONE SOD SUCC 100 MG/2ML INJ VIAL IV SCH ×3 (05:48→21:26)
[2020-10-23] MEDS: ACCU-CHEK COMFORT CURVE STRIP VI SCH ×5 (06:00→20:00)
[2020-10-23] MEDS ORDERED: DEXTROSE (50%) 50ML SYRG IV PRN (07:30)
[2020-10-23] MEDS: SOD CHL 0.45% WITH 20MEQ KCL 1,000 ML IV SCH ×2 (07:32→08:34)
[2020-10-23] MEDS: Glucerna Carbsteady SHAKE Vanilla 8oz PO SCH ×3 (08:00→18:40)
[2020-10-23 08:32] LABS: Basophils # (auto) 0 10 ^3/uL (0-0.2); Eosinophils # (auto) 0 10 ^3/uL (0-0.8); Hemoglobin 7.4 g/dL (12.2-16.2); Lymphocytes # (auto) 0.5 10 ^3/uL (0.4-5.4); Monocytes # (auto) 0.1 10 ^3/uL (0-1.3); Neutrophils # (auto) 2.3 10 ^3/uL (1.6-8.6)
[2020-10-23 08:33] LABS: Basophils % (auto) 0.1 % (0.0-2.0); Eosinophils % (auto) 0.1 % (0.0-7.0); Hematocrit 21.9 % (36.0-46.0); Lymphocytes % (auto) 17.8 % (10.0-50.0); Mean Corpuscular Hemoglobin 25.2 pg (28.0-32.0); Mean Corpuscular Hgb Conc. 33.8 g/dL (32.0-36.0); Mean Corpuscular Volume 74.5 fL (80.0-100.0); Nucleated Red Blood Cells % 0.2 %; Platelet Count (auto) 45 10^3/uL (140-450); Red Blood Cells 2.93 10^6/uL (4.0-5.20)
[2020-10-23 08:35] LABS: Red Cell Distribution Width 31.7 % (11.8-14.3)
[2020-10-23 08:56] LABS: Albumin 2.1 g/dL (3.4-5.0); Calcium 8.6 mg/dL (8.5-10.1); Potassium 3.1 mmol/L (3.5-5.1)
[2020-10-23 08:59] LABS: BUN/Creatinine Ratio 19.4; Bilirubin, Total 0.6 mg/dL (0.2-1.0); Total Protein 6.1 g/dL (6.4-8.2)
[2020-10-23] MEDS: ENOXAPARIN SOD 40 MG/0.4 ML SYRINGE SC SCH (10:00)
[2020-10-23] MEDS: LACTULOSE 20Gm/30ML SOLN PO SCH (10:00)
[2020-10-23] MEDS: ERTAPENEM SOD INJ 1 GM in SODIUM CHL 0.9% 50 ML IV SCH (10:23)
[2020-10-23] MEDS: FAMOTIDINE (10MG/ML) 2ML VL IV SCH ×2 (10:23→21:25)
[2020-10-23] MEDS: LEVOTHYROXINE SODIUM 100 MCG/5 ML INJ IV SCH (10:23)
[2020-10-23] MEDS: NOREPINEPHRINE 8 MG/250ML KIT 250 ML IV SCH (11:30)
[2020-10-23] MEDS: SODIUM FERR GLUC 62.5MG/5ML 125 MG in SODIUM CHL 0.9% 100 ML IV SCH (12:25)
[2020-10-23] MEDS ORDERED: LIDOCAINE 2%HCL (LOCAL ANESTH.) INJ 20ML MDV ONE (15:05)
[2020-10-23] MEDS ORDERED: MIDAZOLAM HCL 1MG/1ML-2 ML VIAL ONE (15:19)
[2020-10-23] MEDS ORDERED: VANCOMYCIN HCL 1000 MG VL ONE (15:19)
[2020-10-23] MEDS ORDERED: fentaNYL CITRATE 100 MCG/2 ML VL ONE (15:19)
[2020-10-23] MEDS ORDERED: VANCOMYCIN 1GM/250ML 250 ML IV ONE (15:23)
[2020-10-23] MEDS: INSULIN LANTUS (GLARGINE) 1 /0.01ml (100units/ml) SC SCH (21:26)
[2020-10-23] MEDS: MICONAZOLE NITRATE 2 % VAGINAL CREAM 45 GM PV SCH (21:52)
[2020-10-24] VITALS (90 sets, daily range): BP systolic 78–125; BP diastolic 37–69
[2020-10-24] MEDS: InsuLIN REG 1unit/0.01ml Soln (100units/ml) SC SCH ×6 (04:00→20:00)
[2020-10-24] MEDS: ACCU-CHEK COMFORT CURVE STRIP VI SCH ×6 (04:00→20:19)
[2020-10-24 04:26] LABS: Basophils # (auto) 0 10 ^3/uL (0-0.2); Eosinophils # (auto) 0 10 ^3/uL (0-0.8); Lymphocytes # (auto) 0.3 10 ^3/uL (0.4-5.4); Mean Corpuscular Volume 75.6 fL (80.0-100.0); Monocytes # (auto) 0.1 10 ^3/uL (0-1.3)
[2020-10-24 04:28] LABS: Basophils % (auto) 0.1 % (0.0-2.0); Eosinophils % (auto) 0.2 % (0.0-7.0); Hematocrit 24.5 % (36.0-46.0); Lymphocytes % (auto) 8.8 % (10.0-50.0); Mean Corpuscular Hemoglobin 24.8 pg (28.0-32.0); Mean Corpuscular Hgb Conc. 32.8 g/dL (32.0-36.0); Neutrophils # (auto) 2.7 10 ^3/uL (1.6-8.6); Neutrophils % (auto) 87.9 % (37.0-80.0); Nucleated Red Blood Cells % 0.2 %; Platelet Count (auto) 49 10^3/uL (140-450); Red Blood Cells 3.24 10^6/uL (4.0-5.20); Red Cell Distribution Width 32.6 % (11.8-14.3)
[2020-10-24 04:46] LABS: Potassium 3.6 mmol/L (3.5-5.1)
[2020-10-24 04:51] LABS: BUN/Creatinine Ratio 17.4; Calcium 7.9 mg/dL (8.5-10.1)
[2020-10-24] MEDS: MIDODRINE HCL 10 MG TAB PO SCH ×3 (06:08→18:31)
[2020-10-24] MEDS: HYDROCORTISONE SOD SUCC 100 MG/2ML INJ VIAL IV SCH ×3 (06:08→21:40)
[2020-10-24] MEDS: SOD CHL 0.45% WITH 20MEQ KCL 1,000 ML IV SCH (07:34)
[2020-10-24] MEDS: Glucerna Carbsteady SHAKE Vanilla 8oz PO SCH ×3 (08:20→18:30)
[2020-10-24] MEDS: ENOXAPARIN SOD 40 MG/0.4 ML SYRINGE SC SCH (10:00)
[2020-10-24] MEDS: LEVOTHYROXINE SODIUM 100 MCG/5 ML INJ IV SCH (10:16)
[2020-10-24] MEDS: FAMOTIDINE (10MG/ML) 2ML VL IV SCH ×2 (10:16→21:40)
[2020-10-24] MEDS: LACTULOSE 20Gm/30ML SOLN PO SCH (10:16)
[2020-10-24] MEDS: ERTAPENEM SOD INJ 1 GM in SODIUM CHL 0.9% 50 ML IV SCH (10:17)
[2020-10-24] MEDS: NOREPINEPHRINE 8 MG/250ML KIT 250 ML IV SCH (11:30)
[2020-10-24] MEDS ORDERED: SODIUM CHLORIDE 0.9% 500 ML IV ONE (11:45)
[2020-10-24] MEDS: SODIUM FERR GLUC 62.5MG/5ML 125 MG in SODIUM CHL 0.9% 100 ML IV SCH (12:52)
[2020-10-24] MEDS: SOD CHL 0.45% 1,000 ML IV SCH ×2 (16:45→20:45)
[2020-10-24] MEDS: INSULIN LANTUS (GLARGINE) 1 /0.01ml (100units/ml) SC SCH (20:40)
[2020-10-24] MEDS: risperiDONE 1 MG TAB PO SCH (21:40)
[2020-10-25] VITALS (77 sets, daily range): BP systolic 78–112; BP diastolic 40–59
[2020-10-25] MEDS: InsuLIN REG 1unit/0.01ml Soln (100units/ml) SC SCH ×6 (00:10→20:29)
[2020-10-25] MEDS: MIDODRINE HCL 10 MG TAB PO SCH ×5 (00:14→23:57)
[2020-10-25] MEDS: ACCU-CHEK COMFORT CURVE STRIP VI SCH ×6 (00:14→19:51)
[2020-10-25] MEDS: SOD CHL 0.45% 1,000 ML IV SCH ×2 (00:45→04:45)
[2020-10-25 04:15] LABS: Magnesium 1.9 mg/dL (1.6-2.6); Potassium 3.5 mmol/L (3.5-5.1)
[2020-10-25 04:18] LABS: Phosphorus 2.7 mg/dL (2.5-4.90)
[2020-10-25] MEDS: HYDROCORTISONE SOD SUCC 100 MG/2ML INJ VIAL IV SCH ×3 (05:43→22:11)
[2020-10-25] MEDS: Glucerna Carbsteady SHAKE Vanilla 8oz PO SCH ×3 (08:33→18:04)
[2020-10-25] MEDS: ERTAPENEM SOD INJ 1 GM in SODIUM CHL 0.9% 50 ML IV SCH (09:53)
[2020-10-25] MEDS: LACTULOSE 20Gm/30ML SOLN PO SCH (09:53)
[2020-10-25] MEDS: LEVOTHYROXINE SODIUM 100 MCG/5 ML INJ IV SCH (09:53)
[2020-10-25] MEDS: ENOXAPARIN SOD 40 MG/0.4 ML SYRINGE SC SCH (09:53)
[2020-10-25] MEDS: FAMOTIDINE (10MG/ML) 2ML VL IV SCH ×2 (09:54→22:11)
[2020-10-25] MEDS: NOREPINEPHRINE 8 MG/250ML KIT 250 ML IV SCH ×2 (11:30→14:05)
[2020-10-25] MEDS: SODIUM FERR GLUC 62.5MG/5ML 125 MG in SODIUM CHL 0.9% 100 ML IV SCH (11:42)
[2020-10-25] MEDS: SODIUM CHLORIDE 0.9% 1,000 ML IV SCH ×2 (14:15→17:48)
[2020-10-25] MEDS: FUROSEMIDE 20 MG/2 ML VIAL IV SCH (17:43)
[2020-10-25] MEDS: risperiDONE 1 MG TAB PO SCH (22:11)
[2020-10-25] MEDS: INSULIN LANTUS (GLARGINE) 1 /0.01ml (100units/ml) SC SCH (22:25)
[2020-10-26] VITALS (39 sets, daily range): BP systolic 86–112; BP diastolic 40–65
[2020-10-26] MEDS: ACCU-CHEK COMFORT CURVE STRIP VI SCH ×7 (00:05→23:50)
[2020-10-26] MEDS: InsuLIN REG 1unit/0.01ml Soln (100units/ml) SC SCH ×7 (00:08→23:56)
[2020-10-26] MEDS: SODIUM CHLORIDE 0.9% 1,000 ML IV SCH ×3 (01:23→17:12)
[2020-10-26 04:45] LABS: Hematocrit 21.2 % (36.0-46.0)
[2020-10-26 04:52] LABS: Mean Corpuscular Hemoglobin 25.7 pg (28.0-32.0); Mean Corpuscular Volume 77.8 fL (80.0-100.0); Platelet Count (auto) 32 10^3/uL (140-450); Red Blood Cells 2.73 10^6/uL (4.0-5.20)
[2020-10-26 04:57] LABS: Potassium 3.4 mmol/L (3.5-5.1); Red Cell Distribution Width 32.5 % (11.8-14.3)
[2020-10-26 05:00] LABS: White Blood Cell 1.4 10^3/uL (4.4-10.8)
[2020-10-26 05:01] LABS: Basophils % (manual) 0 (0.0-2.0); Blast Cells 0; Eosinophils % (manual) 0 (0-7); Metamyelocytes % 0; Myelocytes % 0; Promyelocytes % 0; Reactive Lymphocytes 0
[2020-10-26 05:03] LABS: BUN/Creatinine Ratio 22.4; Calcium 8.3 mg/dL (8.5-10.1)
[2020-10-26 05:44] LABS: Band Neutrophils % (manual) 1; Lymphocytes % (manual) 19 (10.0-50.0); Monocytes % (manual) 1 (0-12)
[2020-10-26] MEDS: FUROSEMIDE 20 MG/2 ML VIAL IV SCH ×2 (06:00→18:19)
[2020-10-26] MEDS: MIDODRINE HCL 10 MG TAB PO SCH ×4 (06:16→23:50)
[2020-10-26] MEDS: HYDROCORTISONE SOD SUCC 100 MG/2ML INJ VIAL IV SCH ×3 (06:16→21:57)
[2020-10-26] MEDS: LEVOTHYROXINE SODIUM 50 MCG TAB PO SCH (06:45)
[2020-10-26] MEDS: Glucerna Carbsteady SHAKE Vanilla 8oz PO SCH ×3 (08:04→18:20)
[2020-10-26] MEDS: LACTULOSE 20Gm/30ML SOLN PO SCH (09:23)
[2020-10-26] MEDS: FAMOTIDINE (10MG/ML) 2ML VL IV SCH ×2 (09:23→21:57)
[2020-10-26] MEDS: ERTAPENEM SOD INJ 1 GM in SODIUM CHL 0.9% 50 ML IV SCH (09:24)
[2020-10-26] MEDS: ENOXAPARIN SOD 40 MG/0.4 ML SYRINGE SC SCH (09:24)
[2020-10-26] MEDS: SODIUM FERR GLUC 62.5MG/5ML 125 MG in SODIUM CHL 0.9% 100 ML IV SCH (12:05)
[2020-10-26] MEDS: risperiDONE 1 MG TAB PO SCH (21:57)
[2020-10-26] MEDS: INSULIN LANTUS (GLARGINE) 1 /0.01ml (100units/ml) SC SCH (23:00)
[2020-10-27] MEDS: ACCU-CHEK COMFORT CURVE STRIP VI SCH ×5 (04:05→20:27)
[2020-10-27] MEDS: InsuLIN REG 1unit/0.01ml Soln (100units/ml) SC SCH ×5 (04:07→20:29)
[2020-10-27 05:00] VITALS: BP 102/59
[2020-10-27] MEDS: SODIUM CHLORIDE 0.9% 1,000 ML IV SCH ×4 (06:50→15:36)
[2020-10-27] MEDS: FUROSEMIDE 20 MG/2 ML VIAL IV SCH ×2 (07:04→17:45)
[2020-10-27] MEDS: LEVOTHYROXINE SODIUM 50 MCG TAB PO SCH (07:05)
[2020-10-27] MEDS: MIDODRINE HCL 10 MG TAB PO SCH ×3 (07:05→17:45)
[2020-10-27] MEDS: HYDROCORTISONE SOD SUCC 100 MG/2ML INJ VIAL IV SCH ×3 (07:05→22:07)
[2020-10-27] MEDS: Glucerna Carbsteady SHAKE Vanilla 8oz PO SCH ×3 (08:47→17:45)
[2020-10-27] MEDS: FAMOTIDINE (10MG/ML) 2ML VL IV SCH ×2 (08:48→22:09)
[2020-10-27] MEDS: LACTULOSE 20Gm/30ML SOLN PO SCH (08:49)
[2020-10-27] MEDS: ENOXAPARIN SOD 40 MG/0.4 ML SYRINGE SC SCH (08:49)
[2020-10-27 09:00] VITALS: BP 108/68
[2020-10-27 12:53] VITALS: BP 111/70
[2020-10-27] MEDS: SODIUM FERR GLUC 62.5MG/5ML 125 MG in SODIUM CHL 0.9% 100 ML IV SCH (13:05)
[2020-10-27] MEDS: ERTAPENEM SOD INJ 1 GM in SODIUM CHL 0.9% 50 ML IV SCH (15:38)
[2020-10-27 17:00] VITALS: BP 104/59
[2020-10-27 22:00] VITALS: BP 108/61
[2020-10-27] MEDS: risperiDONE 1 MG TAB PO SCH (22:07)
[2020-10-27] MEDS: INSULIN LANTUS (GLARGINE) 1 /0.01ml (100units/ml) SC SCH (22:09)
[2020-10-28] MEDS: MIDODRINE HCL 10 MG TAB PO SCH ×4 (00:21→18:15)
[2020-10-28] MEDS: ACCU-CHEK COMFORT CURVE STRIP VI SCH ×6 (00:29→22:12)
[2020-10-28] MEDS: InsuLIN REG 1unit/0.01ml Soln (100units/ml) SC SCH ×5 (00:31→16:52)
[2020-10-28] MEDS: SODIUM CHLORIDE 0.9% 1,000 ML IV SCH ×3 (04:05→11:58)
[2020-10-28 05:00] VITALS: BP 105/65
[2020-10-28] MEDS: HYDROCORTISONE SOD SUCC 100 MG/2ML INJ VIAL IV SCH ×2 (06:34→13:47)
[2020-10-28] MEDS: FUROSEMIDE 20 MG/2 ML VIAL IV SCH (06:34)
[2020-10-28] MEDS: LEVOTHYROXINE SODIUM 50 MCG TAB PO SCH (06:36)
[2020-10-28] MEDS: Glucerna Carbsteady SHAKE Vanilla 8oz PO SCH ×3 (08:30→18:15)
[2020-10-28 09:00] VITALS: BP 111/64
[2020-10-28] MEDS: FAMOTIDINE (10MG/ML) 2ML VL IV SCH ×2 (09:40→22:11)
[2020-10-28] MEDS: ERTAPENEM SOD INJ 1 GM in SODIUM CHL 0.9% 50 ML IV SCH (09:41)
[2020-10-28] MEDS: ENOXAPARIN SOD 40 MG/0.4 ML SYRINGE SC SCH (09:41)
[2020-10-28] MEDS: LACTULOSE 20Gm/30ML SOLN PO SCH (09:41)
[2020-10-28] MEDS ORDERED: DEXTROSE (50%) 50ML SYRG IV PRN (11:15)
[2020-10-28 11:54] LABS: Hematocrit 26.4 % (36.0-46.0); Hemoglobin 8.9 g/dL (12.2-16.2); Mean Corpuscular Hemoglobin 27.2 pg (28.0-32.0); Mean Corpuscular Volume 80.6 fL (80.0-100.0); Red Blood Cells 3.27 10^6/uL (4.0-5.20)
[2020-10-28 11:56] LABS: Mean Corpuscular Hgb Conc. 33.8 g/dL (32.0-36.0); Platelet Count (auto) 28 10^3/uL (140-450)
[2020-10-28 11:59] LABS: Red Cell Distribution Width 34.4 % (11.8-14.3)
[2020-10-28 12:23] LABS: White Blood Cell 1.4 10^3/uL (4.4-10.8)
[2020-10-28 12:24] LABS: Magnesium 1.9 mg/dL (1.6-2.6)
[2020-10-28 12:25] LABS: Basophils % (manual) 0 (0.0-2.0); Blast Cells 0; Eosinophils % (manual) 0 (0-7); Promyelocytes % 0; Reactive Lymphocytes 0
[2020-10-28 12:28] LABS: Potassium 2.8 mmol/L (3.5-5.1)
[2020-10-28 13:00] VITALS: BP 104/65
[2020-10-28] MEDS ORDERED: POTASSIUM CHL 20 Meq TABLET PO ONE (13:00)
[2020-10-28] MEDS: SODIUM FERR GLUC 62.5MG/5ML 125 MG in SODIUM CHL 0.9% 100 ML IV SCH (13:15)
[2020-10-28 13:27] LABS: Band Neutrophils % (manual) 2; Lymphocytes % (manual) 17 (10.0-50.0); Metamyelocytes % 2; Monocytes % (manual) 5 (0-12); Myelocytes % 1
[2020-10-28] MEDS ORDERED: FILGRASTIM(TBO) 480 MCG/0.8 ML SYRG SC ONE (16:15)
[2020-10-28] MEDS ORDERED: MAGNESIUM SULFATE 1GM/100ML 100 ML IV ONE (16:15)
[2020-10-28] MEDS ORDERED: SODIUM CHLORIDE 0.9% 1,000 ML IV SCH (16:15)
[2020-10-28 17:00] VITALS: BP 102/60
[2020-10-28 22:00] VITALS: BP 102/53
[2020-10-28] MEDS ORDERED: InsuLIN REG 1unit/0.01ml Soln (100units/ml) SC SCH (22:00)
[2020-10-28] MEDS: risperiDONE 1 MG TAB PO SCH (22:12)
[2020-10-28] MEDS: INSULIN LANTUS (GLARGINE) 1 /0.01ml (100units/ml) SC SCH (22:15)
[2020-10-29] MEDS: MIDODRINE HCL 10 MG TAB PO SCH ×4 (00:30→17:31)
[2020-10-29 05:00] VITALS: BP 98/50
[2020-10-29 06:11] LABS: Basophils # (auto) 0 10 ^3/uL (0-0.2); Eosinophils # (auto) 0 10 ^3/uL (0-0.8); Lymphocytes # (auto) 0.8 10 ^3/uL (0.4-5.4); Platelet Count (auto) 32 10^3/uL (140-450)
[2020-10-29 06:13] LABS: Basophils % (auto) 0.4 % (0.0-2.0); Eosinophils % (auto) 0.2 % (0.0-7.0); Hematocrit 28.1 % (36.0-46.0); Hemoglobin 9.5 g/dL (12.2-16.2); Lymphocytes % (auto) 12.1 % (10.0-50.0); Mean Corpuscular Hemoglobin 27.5 pg (28.0-32.0); Mean Corpuscular Hgb Conc. 33.9 g/dL (32.0-36.0); Mean Corpuscular Volume 81.3 fL (80.0-100.0); Monocytes # (auto) 0.4 10 ^3/uL (0-1.3); Monocytes % (auto) 6.5 % (0.0-12.0); Neutrophils % (auto) 80.8 % (37.0-80.0); Nucleated Red Blood Cells % 0.1 %; Red Blood Cells 3.45 10^6/uL (4.0-5.20); White Blood Cell 6.2 10^3/uL (4.4-10.8)
[2020-10-29] MEDS: ACCU-CHEK COMFORT CURVE STRIP VI SCH ×4 (06:27→21:38)
[2020-10-29] MEDS: LEVOTHYROXINE SODIUM 50 MCG TAB PO SCH (06:27)
[2020-10-29 06:28] LABS: Red Cell Distribution Width 35.4 % (11.8-14.3)
[2020-10-29] MEDS: InsuLIN REG 1unit/0.01ml Soln (100units/ml) SC SCH ×4 (06:28→21:46)
[2020-10-29 06:42] LABS: BUN/Creatinine Ratio 31.1; Calcium 8.3 mg/dL (8.5-10.1); Magnesium 2.1 mg/dL (1.6-2.6)
[2020-10-29 06:54] LABS: Potassium 2.6 mmol/L (3.5-5.1)
[2020-10-29] MEDS ORDERED: POTASSIUM CHL 20 Meq TABLET PO ONE (07:00)
[2020-10-29] MEDS: Glucerna Carbsteady SHAKE Vanilla 8oz PO SCH ×3 (08:00→17:31)
[2020-10-29 09:00] VITALS: BP 94/52
[2020-10-29] MEDS ORDERED: DEXTROSE (50%) 50ML SYRG IV PRN (09:45)
[2020-10-29] MEDS: LACTULOSE 20Gm/30ML SOLN PO SCH (09:46)
[2020-10-29] MEDS: FAMOTIDINE (10MG/ML) 2ML VL IV SCH ×2 (09:46→21:38)
[2020-10-29] MEDS ORDERED: POTASSIUM CHLORIDE 40 MEQ, LIDOCAINE 1% (LOCAL ANESTH.) 4 ML in SODIUM CHL 0.9% 250 ML IV ONE (10:30)
[2020-10-29] MEDS: SODIUM FERR GLUC 62.5MG/5ML 125 MG in SODIUM CHL 0.9% 100 ML IV SCH (11:40)
[2020-10-29 13:00] VITALS: BP_SYST 90; BP_SYST 92; BP_DIAS 54; BP_DIAS 56
[2020-10-29] MEDS ORDERED: LACTULOSE 20Gm/30ML SOLN PO PRN (15:45)
[2020-10-29] MEDS ORDERED: FILGRASTIM(TBO) 480 MCG/0.8 ML SYRG SC SCH (17:00)
[2020-10-29] MEDS: risperiDONE 1 MG TAB PO SCH (21:38)
[2020-10-29 22:00] VITALS: BP 103/62
[2020-10-29] MEDS ORDERED: INSULIN LANTUS (GLARGINE) 1 /0.01ml (100units/ml) SC SCH (22:00)
[2020-10-30] MEDS: MIDODRINE HCL 10 MG TAB PO SCH ×4 (00:04→18:00)
[2020-10-30 05:00] VITALS: BP 115/61
[2020-10-30] MEDS: ACCU-CHEK COMFORT CURVE STRIP VI SCH ×3 (06:46→17:00)
[2020-10-30] MEDS: LEVOTHYROXINE SODIUM 50 MCG TAB PO SCH (06:46)
[2020-10-30] MEDS: InsuLIN REG 1unit/0.01ml Soln (100units/ml) SC SCH ×3 (06:47→17:00)
[2020-10-30] MEDS: Glucerna Carbsteady SHAKE Vanilla 8oz PO SCH ×3 (08:00→18:00)
[2020-10-30 08:32] LABS: Basophils # (auto) 0 10 ^3/uL (0-0.2); Basophils % (auto) 0.1 % (0.0-2.0); Eosinophils # (auto) 0.1 10 ^3/uL (0-0.8); Hemoglobin 9.3 g/dL (12.2-16.2); Lymphocytes # (auto) 0.4 10 ^3/uL (0.4-5.4); Lymphocytes % (auto) 9.4 % (10.0-50.0); Monocytes # (auto) 0.2 10 ^3/uL (0-1.3); White Blood Cell 4.7 10^3/uL (4.4-10.8)
[2020-10-30 08:38] LABS: Eosinophils % (auto) 1.3 % (0.0-7.0); Hematocrit 28.6 % (36.0-46.0); Mean Corpuscular Hemoglobin 27.9 pg (28.0-32.0); Mean Corpuscular Hgb Conc. 32.4 g/dL (32.0-36.0); Mean Corpuscular Volume 86.2 fL (80.0-100.0); Monocytes % (auto) 3.9 % (0.0-12.0); Neutrophils % (auto) 85.3 % (37.0-80.0); Nucleated Red Blood Cells % 0.2 %; Red Blood Cells 3.32 10^6/uL (4.0-5.20)
[2020-10-30 08:40] LABS: Red Cell Distribution Width 37.5 % (11.8-14.3)
[2020-10-30 08:43] LABS: Platelet Count (auto) 13 10^3/uL (140-450)
[2020-10-30 08:53] LABS: BUN/Creatinine Ratio 20.6; Calcium 7.7 mg/dL (8.5-10.1); Magnesium 2.1 mg/dL (1.6-2.6); Potassium 4.4 mmol/L (3.5-5.1)
[2020-10-30 09:00] VITALS: BP 102/61
[2020-10-30 12:00] LABS: Basophils # (auto) 0 10 ^3/uL (0-0.2); Basophils % (auto) 0.2 % (0.0-2.0); Eosinophils # (auto) 0.1 10 ^3/uL (0-0.8); Eosinophils % (auto) 1.4 % (0.0-7.0); Hemoglobin 9.6 g/dL (12.2-16.2); Lymphocytes # (auto) 0.5 10 ^3/uL (0.4-5.4); Lymphocytes % (auto) 9.4 % (10.0-50.0); Mean Corpuscular Hemoglobin 27.2 pg (28.0-32.0); Monocytes # (auto) 0.2 10 ^3/uL (0-1.3); Monocytes % (auto) 3.7 % (0.0-12.0); Neutrophils # (auto) 4.5 10 ^3/uL (1.6-8.6); Neutrophils % (auto) 85.3 % (37.0-80.0); Nucleated Red Blood Cells % 0.2 %; Platelet Count (auto) 25 10^3/uL (140-450); Red Blood Cells 3.53 10^6/uL (4.0-5.20); Red Cell Distribution Width 37.9 % (11.8-14.3); White Blood Cell 5.3 10^3/uL (4.4-10.8)
[2020-10-30 13:00] VITALS: BP 113/62
[2020-10-30] MEDS ORDERED: FER325T PO (13:07)
[2020-10-30] MEDS ORDERED: LACT10SO70 PO (13:07)
[2020-10-30] MEDS ORDERED: MIDO10TA2 PO (13:07)
[2020-10-30] MEDS: FAMOTIDINE (10MG/ML) 2ML VL IV SCH (14:12)
[2020-10-30] MEDS: SODIUM FERR GLUC 62.5MG/5ML 125 MG in SODIUM CHL 0.9% 100 ML IV SCH (14:13)
[2020-10-30 17:00] VITALS: BP 111/60
[2020-10-30 17:47] VITALS: BP 111/60
== END 2020-10-30 18:25 | disposition home health service (06) | DRG 853 ==
LOC: ER 08:43 → EDBD 08:43 → TELE 11:37 → ICU WEST 15:50 → TELE-EAST 10-26 16:30
PROVIDERS: ADMIT Nurse Practitioner Acute Care; ATTEND Internal Medicine
PROC: 5A1955Z Respiratory Ventilation, Greater than 96 Consecutive Hours (ICD-10-PCS; 2020-10-07)
PROC: 0BH17EZ Insertion of Endotracheal Airway into Trachea, Via Natural or Artificial Opening (ICD-10-PCS; 2020-10-07)
PROC: 30233N1 Transfusion of Nonautologous Red Blood Cells into Peripheral Vein, Percutaneous Approach (ICD-10-PCS; 2020-10-10)
PROC: 02HV33Z Insertion of Infusion Device into Superior Vena Cava, Percutaneous Approach (ICD-10-PCS; principal; 2020-10-11)
PROC: 0JH606Z Insertion of Pacemaker, Dual Chamber into Chest Subcutaneous Tissue and Fascia, Open Approach (ICD-10-PCS; 2020-10-23)
PROC: 02HK3JZ Insertion of Pacemaker Lead into Right Ventricle, Percutaneous Approach (ICD-10-PCS; 2020-10-23)
PROC: 02H63JZ Insertion of Pacemaker Lead into Right Atrium, Percutaneous Approach (ICD-10-PCS; 2020-10-23)
DX: A41.51 Sepsis due to Escherichia coli [E. coli] (principal); E11.10 Type 2 diabetes mellitus with ketoacidosis without coma; G93.41 Metabolic encephalopathy; J96.01 Acute respiratory failure with hypoxia; N17.0 Acute kidney failure with tubular necrosis; J69.0 Pneumonitis due to inhalation of food and vomit; J15.211 Pneumonia due to Methicillin susceptible Staphylococcus aureus; R65.21 Severe sepsis with septic shock; I50.31 Acute diastolic (congestive) heart failure; D68.9 Coagulation defect, unspecified; N39.0 Urinary tract infection, site not specified; K76.6 Portal hypertension; I44.2 Atrioventricular block, complete; Z99.11 Dependence on respirator [ventilator] status; D50.9 Iron deficiency anemia, unspecified; E86.0 Dehydration; B96.20 Unspecified Escherichia coli [E. coli] as the cause of diseases classified elsewhere; C53.9 Malignant neoplasm of cervix uteri, unspecified; D63.8 Anemia in other chronic diseases classified elsewhere; D69.6 Thrombocytopenia, unspecified; E11.22 Type 2 diabetes mellitus with diabetic chronic kidney disease; E87.6 Hypokalemia; K72.90 Hepatic failure, unspecified without coma; K74.60 Unspecified cirrhosis of liver; Z51.5 Encounter for palliative care; E83.42 Hypomagnesemia; Z20.822 Contact with and (suspected) exposure to COVID-19; E11.65 Type 2 diabetes mellitus with hyperglycemia; E03.9 Hypothyroidism, unspecified; K59.00 Constipation, unspecified; Z90.710 Acquired absence of both cervix and uterus; Z82.49 Family history of ischemic heart disease and other diseases of the circulatory system; Z85.41 Personal history of malignant neoplasm of cervix uteri; Z86.73 Personal history of transient ischemic attack (TIA), and cerebral infarction without residual deficits
CPT/HCPCS: 36415; 36600; 70450; 71045; 71260; 74177; 80048; 80053; 80061; 80202; 80307; 80320; 81001; 82010; 82140; 82247; 82533; 82805; 82962; 83036; 83540; 83550; 83605; 83735; 83880; 83930; 84100; 84132; 84300; 84436; 84443; 84481; 85007; 85014; 85018; 85025; 85027; 85049; 85610; 86850; 86900; 86901; 86920; 87040; 87070; 87077; 87081; 87086; 87088; 87186; 87205; 87426; 92610; 93005; 93306; 94002; 94003; 94640; 96365; 96367; 96372; 96375; 97110; 97116; 97530; 99152; 99153; A4618; C1785; C9113; G0378; J0131; J0330; J0461; J0696; J1335; J1447; J1815; J1956; J2001; J2250; J2543; J2704; J3480; J3490; J7060; P9047